=== PATIENT | male | born 1940 | race Caucasian/White ===

== ENCOUNTER → 2016-09-23 | Outpatient (CLI) | payer OTHER, MEDICARE ==
[~2016-09-23] MED LIST: ACC10 PO; ALBU1AER9 INH; ASPEC81 PO; ATOR-26 PO; CARV3.12 PO; CLOP1TAB15 PO; CYAN100T PO; HYDR-5688 PO; LSX20 PO; MAGN400T6 PO; MOME220A; NTRGSL/4 UT; POTA1080 PO; PRLSR20 PO; PSYL55.43; RANO1000 PO; RXC5 PO; TAMS0.4C59 PO; THIA100T11 PO; TRAZ100T29 PO; TRIA3AER NAE; colon health PO
[2016-09-23 17:52] LABS: BLOOD UREA NITROGEN 21 mg/dl (7-18); BUN/CREATININE RATIO 17.8 (10-20); CALCIUM 9.5 mg/dl (8.5-10.1); CARBON DIOXIDE 29 mmol/L (21-32); CHLORIDE 105 mmol/L (98-107); GLUCOSE 100 mg/dl (70-99); POTASSIUM 4.6 mmol/L (3.5-5.1); SODIUM 141 mmol/L (136-145)
== END | disposition home or self-care (01) ==
LOC: C.LABPBG 11:04
PROVIDERS: ATTEND Urology
DX: N20.0 Calculus of kidney (principal); R31.0 Gross hematuria; N40.1 Benign prostatic hyperplasia with lower urinary tract symptoms

== ENCOUNTER → 2017-04-06 | Outpatient (CLI) | payer OTHER, MEDICARE ==
[2017-04-06 12:47] LABS: BLOOD UREA NITROGEN 20 mg/dl (7-18); BUN/CREATININE RATIO 17.2 (10-20); CALCIUM 9.1 mg/dl (8.5-10.1); CARBON DIOXIDE 27 mmol/L (21-32); CHLORIDE 104 mmol/L (98-107); CREATININE 1.17 mg/dl (0.60-1.40); GLUCOSE 106 mg/dl (70-99); POTASSIUM 4.2 mmol/L (3.5-5.1); SODIUM 139 mmol/L (136-145)
== END | disposition home or self-care (01) ==
LOC: C.LABPBG 10:04
PROVIDERS: ATTEND Urology
DX: N20.0 Calculus of kidney (principal)